=== PATIENT | female | born 2000 | race Caucasian/White ===

== ENCOUNTER 2023-06-11 16:22 | Emergency (ER) | payer OTHER ==
[~2023-06-11] VITALS: Ht 160 cm; Wt 59.5 kg
[2023-06-11 16:59] LABS: BILIRUBIN, URINE NEGATIVE (negative); BLOOD/HGB, URINE NEGATIVE (Negative); KETONE, URINE NEGATIVE (Negative); LEUK ESTERASE, URINE NEGATIVE (negative); NITRITE, URINE NEGATIVE (negative)
[2023-06-11 17:07] LABS: BASOPHILS 0.8 % (0-2); EOSINOPHILS 2.8 % (0-6); HEMATOCRIT 40.1 % (35.0-50.0); HEMOGLOBIN 13.3 g/dL (12.0-18.0); LYMPHOCYTES 31.2 % (24-44); MCH 32.8 (27-36); MCV 99.4 fl (81-99); MONOCYTES 7.8 % (0-12); NEUTROPHILS 57.4 % (39-80); PLATELET COUNT 200 K/uL (140-440); RBC 4.03 M/ul (4.3-5.7); RDW 13.2 (10.5-15.0)
[2023-06-11 17:23] LABS: ALBUMIN 4.2 g/dL (3.4-5.0); ALBUMIN/GLOBULIN RATIO 1.35 (1.1-2.4); ANION GAP 13.3 (7-21); BILIRUBIN, TOTAL 0.2 ng/dL (0.2-1.0); BUN/CREATININE RATIO 12.3 (6.0-28.6); CREATININE, SERUM 0.65 mg/dL (0.55-1.02); POTASSIUM 4.3 mmol/L (3.5-5.1); PROTEIN, TOTAL 7.3 g/dL (6.4-8.2)
[2023-06-11 17:27] LABS: CALCIUM 8.7 mg/dL (8.5-10.1)
[2023-06-11 17:59] VITALS: BP 104/75
== END 2023-06-11 18:00 | disposition home or self-care (01) ==
LOC: ED 16:22
PROVIDERS: Emergency Medicine
DX: R10.9 Unspecified abdominal pain (principal)
CPT/HCPCS: 36415; 80053; 81003; 84703; 85025